=== PATIENT | male | born 1950 | race Caucasian/White ===

== ENCOUNTER 2018-11-12 13:20 | Emergency (ER) | payer MEDICARE, BC, OTHER, SELFPAY ==
[2018-11-12 13:21] VITALS: BP 109/66; PULSE 101; RESP 16; TEMP 36.6; O2SAT 93; BMI 31.1
--- NOTE | 2018-11-12 13:46 | CT_ITS ---
STUDY: CT LUMBAR SPINE WITHOUT CONTRAST REASON FOR EXAM: Male, 68 years old. ABSCESS, LUMBAR FUSION L4-5 S1 RADIATION DOSAGE (If Supplied By Facility): CTDIvol = ( 30.41 ) mGy, DLP = ( 1096.67 ) mGycm TECHNIQUE: The patient was scanned in a multi detector CT scanner. High resolution transaxial imaging was performed. Images were obtained from to . Sagittal and coronal images were reconstructed. Individualized dose optimization techniques were used for this CT. COMPARISON: None FINDINGS: Normal lumbar lordosis. There is grade 1 anterolisthesis at L5/S1. There is posterior fusion with transpedicular screw fixation at L4 and S1. There are periprostatic lucencies surrounding the S1 transpedicular screws, consistent with loosening. At L4/L5: There is a decompression laminectomy. There is posterior soft tissue fluid collection and air. The fluid collection measures approximately 3.5 x 6.2 x 9.0 cm and is consistent with given history of abscess. Evaluation is limited secondary to hardware artifact. Further evaluation with contrast-enhanced MRI can be obtained. There is multilevel endplate spondylosis of the lumbar vertebrae. There is multi-level degenerative disc disease with multi-level disc space narrowing. CT/Spine Lumbar WITH Contrast IMPRESSION: 9 cm posterior fluid collection, consistent with given history of abscess. Further evaluation with contrast-enhanced MRI is recommended. Electronically Signed: Isabel Leon MD at 14:53 EDT Tel , Service support ,
--- NOTE | 2018-11-12 13:57 | ED.DCSUM_ITS ---
History of Present Illness Chief Complaint: Wound Check Informant: Patient, Family Onset: Days - 3 Context: Gradual Onset Timing: Continuous Quality: aching Location: low back surgical incision Current Severity: Moderate Maximum Severity: Moderate Worsened by: movement, palpation Relieved by: nothing Associated Symptoms: redness, swelling, drainage Narrative: 68-year-old male presents to the emergency department for a wound check of his low back. He had surgery 6 weeks ago lumbar spine in [place]. He is currently in town visiting for a wedding. For the past 3 days he has had increased pain redness and swelling. His surgeon called him in Augmentin which he has been on now, today's day 3. He does not feel as if the redness swelling and pain are improving. He has not had a fever. Denies trauma. He has no lower extremity numbness tingling or weakness. No difficulty urinating or loss of bowel or bladder function. Denies drug abuse. Denies vomiting or diarrhea. Denies abdominal pain. Prior similar symptoms: Yes Recent Illness/Hospitalization: No Past Medical History - Allergies and Home Meds Allergies/Adverse Reactions: Allergies codeine Allergy (Verified 11/12/18 13:21) Anaphylaxis erythromycin base Allergy (Verified 11/12/18 13:21) Anaphylaxis Primary Care Physician: NOT,DEFINED [NON-STAFF] - Prior records reviewed: Yes Past Medical History: - - Hypertension, hyperlipidemia, coronary artery disease Surgical History: - - back surgery Lives: With Family Smoking Status: Current every day smoker Alcohol: Occasional Drugs: None Review of Systems All systems negative except as indicated General: Denies: Chills, Fever Cardiovascular: Denies: Chest pain Respiratory: Denies: Dyspnea Gastrointestinal: Denies: Abdominal pain, Nausea, Vomiting, Diarrhea, Constipation Musculoskeletal: Reports: Back pain Skin: Reports: Wounds Neurological: Denies: Weakness, Parasthesia, Numbness Physical Exam Vital Signs/Narrative: Vital Signs Temp Pulse Resp BP Pulse Ox 11/12/18 13:21 97.9 F 101 H 16 109/66 93 Inital Vital Signs reviewed: Yes General: Well nourished, Well developed, No Acute Distress, Acute Distress Head: Normocephalic, Atraumatic Eyes: Perrl, EOMI ENT: Moist mucous membranes Neck: Supple - normal ROM, Nontender Cardiovascular: Regular rate, Regular rhythm Respiratory: No distress, CTA bilaterally, Chest nontender Abdomen: Soft, Nontender, Nondistended, Normal bowel sounds, No masses Back: - - Lumbar surgical incision is intact however distally there is a open wound. There is some surrounding redness and warmth localized to the incision mostly distally. There is active purulence on exam draining from the distal end of the low back incision. Extremities: Nontender, No edema, - - 5 out of 5 strength testing both lower extremities. Normal lower extremity sensation and pulses. Normal patellar and Achilles reflexes bilaterally. Gait is normal. Skin: No rash Neurological: Alert, Oriented x3, Normal Strength, Normal Sensation, Normal DTR, Normal Gait Psychological: Normal affect Diagnostic/Tx/Re-eval - Medical Decision Making Vital signs are stable. Patient has no fever. White count is 17. We did obtain a CT scan with IV contrast of his lumbar spine as today is Wednesday afternoon and we are unable to perform an MRI. This demonstrated a 9 cm fluid collection posteriorly. I did speak with his surgeon Dr. Borjas, in [place]. He was agreeable with our plan of 1 dose of IV Zosyn and vancomycin. He requested we send a copy of the CT scan and he will see the patient Wednesday morning at 830 and he said he scheduled for the patient to have a washout and surgery on Wednesday. He did advise me to have the patient go straight to the emergency department if he develops worsening symptoms. He was agreeable with our plan of switching the patient from Augmentin to Bactrim and Keflex. ED Disposition - Plan for ED Patient: Disposition: Home or Assisted Living Diagnosis: Post-operative infection Instructions: ED Wound Infec After Surgery Prescriptions: Cephalexin [Keflex] 500 mg PO Q12 #14 cap Smz/Tmp Ds [Bactrim Ds] 1 tab PO BID #14 tab Referrals: NOT,DEFINED [NON-STAFF] -
[2018-11-12 13:59] VITALS: TEMP 36.6
[2018-11-12 14:12] LABS: Absolute Lymphocyte Count 1.56 X10^3/ul (0.83-4.51); Absolute Neutrophil Count 14.3 X10^3/uL (2.0-7.7); Basophil# 0.04 X10^3/uL; Basophil% 0.2 % (0-1); Eosinophil# 0.15 X10^3/uL; Eosinophils% 0.9 % (0-5); Hematocrit 40.8 % (40-54); Hemoglobin 13.8 g/dl (13.0-16.5); Lymphocyte # 1.56 X10^3/ul (4.0); Lymphocyte % 8.9 % (19-41); Mean Corp Hgb Conc 33.8 g/gl (32-36); Mean Corpuscular Hgb 32.9 pg (27.0-32.0); Mean Corpuscular Volume 97.1 fL (80-94); Monocyte# 1.48 X10^3/uL; Monocyte% 8.4 % (0-10); Neutrophil % 81.4 % (47-70); Platelet Count 522 K/mm3 (150-450); RBC Distribution Width CV 15.4 % (11.6-14.6); RBC Distribution Width SD 54.2 fl (35.1-43.9); White Blood Count 17.6 K/mm3 (4.4-11.0)
[2018-11-12 14:15] LABS: POSITIVE COUNT NO; POSITIVE DIFFERENTIAL NO; POSITIVE MORPHOLOGY NO
[2018-11-12 14:16] LABS: Anion Gap 0 (5-15); BUN 17 mg/dL (7-18); BUN/Creat Ratio 21.7 RATIO (10-20); Calcium,Total 9.1 mg/dL (8.5-10.1); Chloride 97 mmol/L (98-107); Creatinine, Serum 0.78 mg/dL (0.70-1.30); EST Glomerular Filtration Rate 104 mL/min (>60); Est Glom Filt Rate - Afr Amer 126 mL/min (>60); Estimated Creatinine Clearance 67.45 ml/min; Glucose 103 mg/dL (74-106); Potassium 4.8 mmol/L (3.5-5.1); Sodium Level 130 mmol/L (136-145)
[2018-11-12 18:45] VITALS: BP 170/94; PULSE 109; RESP 19; TEMP 36.8; O2SAT 92
[2018-11-12 18:47] VITALS: BP 170/94; PULSE 109; RESP 19; O2SAT 92
== END 2018-11-12 18:52 | disposition home or self-care (01) ==
PROVIDERS: Emergency Provider Physician Assistant Medical
DX: T81.41XA Infection following a procedure, superficial incisional surgical site, initial encounter (principal); L02.212 Cutaneous abscess of back [any part, except buttock and flank]; I25.10 Atherosclerotic heart disease of native coronary artery without angina pectoris; I10 Essential (primary) hypertension; E78.5 Hyperlipidemia, unspecified; F17.200 Nicotine dependence, unspecified, uncomplicated
CPT/HCPCS: 72132; 80048; 85025; 96365; 96366; 96367; 99283; J7040; Q9967; A4216